=== PATIENT | female | born 1985 | race Caucasian/White ===

== ENCOUNTER 2017-05-02 18:53 | Emergency (ER) | payer BC ==
[~2017-05-02] VITALS: Ht 172.7 cm; Wt 81.6 kg
[2017-05-02 19:33] VITALS: BP 123/65
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
== END 2017-05-02 19:37 | disposition home or self-care (01) ==
LOC: EMR 19:37
DX: G44.209 Tension-type headache, unspecified, not intractable (principal)
CPT/HCPCS: 99283